=== PATIENT | female | born 1990 | race Caucasian/White ===

== ENCOUNTER 2016-10-28 00:10 | Emergency (ER) | payer SELFPAY ==
[~2016-10-28] VITALS: Ht 160 cm; Wt 73.2 kg
[~2016-10-28 00:10] MED LIST: OSEL75 PO; PERC5TAB12 PO; VITATAB25 PO; ZOFR4TAB3 SL
[2016-10-28 00:20] VITALS: BP 113/81; PULSE 90; RESP 16; TEMP 98.4; O2SAT 98
--- NOTE | 2016-10-28 04:36 | PD ---
HPI Chief Complaint: injury Time Seen by Provider: 04:33 Travel History International Travel<30 days: No Contact w/Intl Traveler<30days: No Traveled to known affect area: No History of Present Illness HPI 26-year-old female presents to the emergency department for complaint of right wrist pain. According the patient Sunday afternoon while playing with her son she was squatting down and he accidentally pushed her backwards causing her to catch her near fall with extending both of her arms backwards behind her. Patient states mild discomfort to the left wrist initially but this is not an issue at this time however continues to have ongoing right wrist pain with some focal swelling. No paresthesias of the hand. Patient is right-handed. No prior injury to the right hand. Patient reports pain is severe with attempted movement of the right wrist. Patient denies . No reported head injury no loss of consciousness no reported neck back abdomen or pelvic injury. PFSH Past Medical History Narrative Medical Cholecystectomy breast lump excision orthopedic surgeries no tobacco use nursing notes reviewed Diminished Hearing: No Kidney Stones: Yes Immunizations Current: Yes : 3 Para: 2 Miscarriage: 1 Past Surgical History Cholecystectomy: Yes Other Surgery: Yes (2010 LEFT LUMPECTOMY) Social History Alcohol Use: No Tobacco Use: No Substance Use: No Allergies-Medications (Allergen,Severity, Reaction): Coded Allergies: Toradol (Verified Allergy, Severe, Shortness of Breath, 10/28/16) SEVERE ITCHING Reported Meds & Prescriptions Reported Meds & Active Scripts Active Ultram (Tramadol HCl) 50 Mg Tab 50 Mg PO Q6H PRN Review of Systems Except as stated in HPI: all other systems reviewed are Neg Physical Exam Narrative GENERAL: Well-developed well-nourished female in no acute distress no respiratory distress SKIN: Warm and dry. HEAD: Normocephalic. EYES: No scleral icterus. No injection or drainage. NECK: Supple, trachea midline. No JVD or lymphadenopathy. MUSCULOSKELETAL: No cyanosis, or edema. Right wrist tender to palpation no deformity mild edema no ecchymosis no erythema no increased warmth distally extremity is neurovascular tendon intact BACK: Nontender without obvious deformity. No CVA tenderness. Data Data Last Documented VS Vital Signs Date Time Temp Pulse Resp B/P Pulse Ox O2 Delivery O2 Flow Rate FiO2 10/28/16 04:59 95 18 98 Room Air 10/28/16 00:20 98.4 113/81 Orders Wrist, Complete (Orm2oic) (10/28/16 ) Ed Urine Pregnancytest Poc (10/28/16 04:17) Hand, Complete (Utf9thw) (10/28/16 ) Support Splint (10/28/16 05:10) [facility] Medical Decision Making Medical Screen Exam Complete: Yes Emergency Medical Condition: Yes Medical Record Reviewed: Yes Interpretation(s) Point of care hCG: Negative right hand xray: nabi FINDINGS: Three view examination of the right hand demonstrates no soft tissue swelling, dislocation, or fracture. The carpal bones appear intact. The interphalangeal and metacarpophalangeal joints are intact. Bony mineralization is normal. CONCLUSION: Negative exam. George Casey MD on October 28, 2016 at 5:00 Board Certified Radiologist. This report was verified electronically. Differential Diagnosis Sprain strain subluxation fracture or dislocation tendinitis Narrative Course Ice applied imaging studies ordered [id number] hCG negative Diagnosis Primary Impression: Right wrist injury Qualified Code: S69.91XA - Right wrist injury, initial encounter Referrals: Primary Care Physician call for appointment Patient Instructions: General Instructions Additional Instructions: wear wrist splint May use as tolerated acetaminophen/Tylenol for minor pain May use prescription Ultram for pain greater than 5/10 in intensity Use ice intermittently for first 12-24 hours Follow-up with primary care provider Return to the emergency department for any concerns or change in condition Avoid use of right hand/wrist Med/Other Pt SpecificInfo: Prescription(s) given Scripts Tramadol (Ultram)50 Mg Tab50 Mg PO Q6H PRN (PAIN) #10 TAB Ref 0 Prov:Anabela Silverman MD 10/28/16 Disposition: 01 DISCHARGE HOME Condition: Stable Anabela Silverman MD Oct 28, 2016 04:36
--- NOTE | 2016-10-28 05:01 | RADHPO ---
EXAM DATE/TIME: 10/28/2016 04:40 [facility] COMPARISON: No previous studies available for comparison. INDICATIONS : Right hand pain after fall. MEDICAL HISTORY : None. SURGICAL HISTORY : None. ENCOUNTER: Initial ACUITY: 1 day PAIN SCORE: 8/10 LOCATION: Right upper extremity FINDINGS: Three view examination of the right hand demonstrates no soft tissue swelling, dislocation, or fractu re. The carpal bones appear intact. The interphalangeal and metacarpophalangeal joints are intact. Bony mineralization is normal. CONCLUSION: Negative exam. George Casey MD on October 28, 2016 at 5:00 Board Certified Radiologist. This report was verified electronically.
--- NOTE | 2016-10-28 05:03 | RADHPO ---
EXAM DATE/TIME: 10/28/2016 04:38 [facility] COMPARISON: No previous studies available for comparison. INDICATIONS : Entire right wrist pain after fall. MEDICAL HISTORY : None. SURGICAL HISTORY : None. ENCOUNTER: Initial ACUITY: 1 day PAIN SCORE: 8/10 LOCATION: Right upper extremity FINDINGS: Three view examination of the right wrist demonstrates no soft tissue swelling, dislocation, or fract ure. The carpal bones are in normal alignment. The joint spaces are maintained. Bony mineralizatio n is normal. CONCLUSION: Negative exam. George Casey MD on October 28, 2016 at 5:02 Board Certified Radiologist. This report was verified electronically.
[2016-10-28] MEDS ORDERED: ULTR50TA5 PO (05:09)
[2016-10-28 05:41] VITALS: BP 105/68; TEMP 97.4
== END 2016-10-28 05:46 | disposition home or self-care (01) ==
LOC: PHED 00:10
DX: S69.91XA Unspecified injury of right wrist, hand and finger(s), initial encounter (principal); W01.0XXA Fall on same level from slipping, tripping and stumbling without subsequent striking against object, initial encounter; Y93.F9 Activity, other caregiving
CPT/HCPCS: 73110; 73130; 84703; 99283; L3908